=== PATIENT | male | born 1995 | race Caucasian/White ===

== ENCOUNTER 2017-07-23 14:09 | Emergency (ER) | payer BC, OTHER ==
--- NOTE | 2017-07-23 15:40 | ED ---
Chest Pain HPI - General Chief Complaint: Chest Pain Stated Complaint: Chest pain Time Seen by Provider: 07/23/17 14:58 Source: patient Mode of arrival: ambulatory Limitations: no limitations - History of Present Illness Initial Comments: This patient is a 21-year-old man presenting to be evaluated for her a sternal chest pain and a nonproductive cough. The patient states that the symptoms had started this morning, he noted them just after waking up. He denied having any trauma setting this off. 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 He is not currently taking treatment. Patient denies fever or chills, dyspnea, diaphoresis, nausea or vomiting, palpitations lightheadedness or syncope. When he went to the clinic and describes his symptoms they performed a 12-lead EKG that he was told showed an incomplete right bundle branch block and he was forwarded here in relation to that. The patient states he has never had an EKG performed and does not know if this is a new finding. MD Complaint: chest pain -: hour(s) Onset: during rest Pain Location: substernal Severity: mild Quality: dull Consistency: constant Improves With: nothing Worsens With: nothing Other Symptoms: cough Treatments Prior to Arrival: none - Related Data Home Medications Medication Instructions Recorded Confirmed Fexofenadine/Pseudoephedrine 1 tab PO DAILY 07/23/17 07/23/17 [Juanis-D 24 Hour Tablet] Ivig Treatment 1 dose IV QMONTH 07/23/17 07/23/17 guaiFENesin [Mucinex] 600 mg PO BID PRN 07/23/17 07/23/17 Allergies Allergy/AdvReac Type Severity Reaction Status Date / Time silver Allergy Irritation Verified 07/23/17 15:15 [From Tegaderm AG Mesh] Sulfa (Sulfonamide Allergy Rash/Hives Verified 07/23/17 15:15 Antibiotics) Review of Systems ROS Statement: Those systems with pertinent positive or pertinent negative responses have been documented in the HPI. ROS Other: All systems not noted in ROS Statement are negative. Constitutional: Denies: fever, chills Respiratory: Reports: as per HPI, cough. Denies: dyspnea, wheezes, hemoptysis Cardiovascular: Reports: as per HPI, chest pain. Denies: palpitations, dyspnea on exertion, orthopnea, edema, syncope Gastrointestinal: Denies: abdominal pain, nausea, vomiting Genitourinary: Denies: dysuria, hematuria Musculoskeletal: Denies: back pain Skin: Denies: rash Neurological: Denies: headache, weakness, numbness EKG Findings - EKG Results: EKG: interpreted by ERMD, sinus rhythm (With sinus arrhythmia, rate 65 bpm), normal axis, normal ST/T - Blocks, [place], Hypertrophy, ST Abn: AV and intraventricular conduction: right bundle branch block (fixed/ intermittent, complete/incomplete) (Incomplete right bundle-branch block) Past Medical History Past Medical History: Cancer Additional Past Medical History / Comment(s): leukemia 2009, IV IG therapy History of Any Multi-Drug Resistant Organisms: None Reported Additional Past Surgical History / Comment(s): medi port insertion and removal Past Psychological History: No Psychological Hx Reported Smoking Status: Never smoker Past Alcohol Use History: None Reported Past Drug Use History: None Reported General Exam Limitations: no limitations General appearance: alert, in no apparent distress Head exam: Present: atraumatic, normocephalic Eye exam: Present: normal appearance. Absent: scleral icterus, conjunctival injection ENT exam: Present: normal oropharynx Neck exam: Present: normal inspection Respiratory exam: Present: normal lung sounds bilaterally. Absent: respiratory distress, wheezes, rales, rhonchi, stridor, chest wall tenderness Cardiovascular Exam: Present: regular rate, normal rhythm, normal heart sounds. Absent: systolic murmur, diastolic murmur, rubs, gallop GI/Abdominal exam: Present: soft. Absent: distended, tenderness, guarding, rebound, rigid Extremities exam: Present: normal inspection, normal capillary refill. Absent: pedal edema, calf tenderness Back exam: Present: normal inspection Neurological exam: Present: alert Skin exam: Present: warm, dry, intact, normal color. Absent: rash Course Vital Signs 07/23/17 07/23/17 07/23/17 14:14 15:43 18:03 Temperature 97.2 F L 98.1 F Pulse Rate 72 64 Respiratory 18 16 16 Rate Blood Pressure 136/97 128/81 O2 Sat by Pulse 99 97 Oximetry Chest Pain MDM - MDM This patient is 21-year-old man presenting with flulike symptoms. There was an incidental finding of incomplete right bundle branch block on the patient's EKG at the clinic. The workup here is negative for acute ischemia. The patient has previously seen cardiology and had echocardiograms following his chemotherapy. The patient will be directed back to cardiology to see if this EKG finding is old as expected, and may require new echocardiogram. He does not have symptoms suggestive of cardiac ischemia, we discussed these as well as other return parameters. Disposition Clinical Impression: Viral syndrome, Incomplete right bundle branch block Disposition: HOME SELF-CARE Condition: Good Instructions: Viral Syndrome (ED) Referrals: Anaid Arnold MD [Primary Care Provider] - 1-2 days
[2017-07-23 15:44] VITALS: RESP 16
[2017-07-23 16:04] LABS: Basophils # (A) 0.1 k/uL (0-0.2); Basophils % (A) 1 %; Eosinophils # (A) 0.4 k/uL (0-0.7); Eosinophils % (A) 4 %; HCT 46.5 % (39.0-53.0); HGB 14.8 gm/dL (13.0-17.5); Lymphocytes # (A) 1.8 k/uL (1.0-4.8); Lymphocytes % (A) 18 %; MCH 28.4 pg (25.0-35.0); MCHC 31.9 g/dL (31.0-37.0); Mean Platelet Volume 6.9; Monocytes # (A) 0.4 k/uL (0-1.0); Monocytes % (A) 4 %; Neutrophils % (A) 71 %; Platelet Count 226 k/uL (150-450); RBC 5.22 m/uL (4.30-5.90); RDW 13.3 % (11.5-15.5); WBC 9.8 k/uL (3.8-10.6)
[2017-07-23 16:12] LABS: ALT 22 U/L (21-72); AST 23 U/L (17-59); Albumin 4.2 g/dL (3.5-5.0); Alkaline Phosphatase 69 U/L (38-126); Anion Gap 12 mmol/L; Blood Urea Nitrogen 13 mg/dL (9-20); Calcium 9.4 mg/dL (8.4-10.2); Carbon Dioxide 24 mmol/L (22-30); Chloride 106 mmol/L (98-107); Glucose 97 mg/dL (74-99); Sodium 142 mmol/L (137-145); Total Bilirubin 0.4 mg/dL (0.2-1.3); Total Protein 7.2 g/dL (6.3-8.2)
--- NOTE | 2017-07-23 17:12 | XR ---
EXAMINATION TYPE: XR chest 2V DATE OF EXAM: 07/23/2017 COMPARISON: NONE HISTORY: Chest pain and cough. TECHNIQUE: Frontal and lateral views of the chest are obtained. FINDINGS: There is no focal air space opacity, pleural effusion, or pneumothorax seen. The cardiac silhouette size is within normal limits. The osseous structures are intact. IMPRESSION: No acute cardiopulmonary process.
[2017-07-23 18:04] VITALS: BP 128/81; PULSE 64; TEMP 98.1
== END 2017-07-23 18:04 | disposition home or self-care (01) ==
LOC: EC 14:09
DX: B34.9 Viral infection, unspecified (principal); I45.10 Unspecified right bundle-branch block; Z85.6 Personal history of leukemia; Z88.2 Allergy status to sulfonamides; Z91.048 Other nonmedicinal substance allergy status; Z79.899 Other long term (current) drug therapy
CPT/HCPCS: 36415; 71046; 80053; 84484; 85025; 87502; 93005; 99285

== ENCOUNTER 2019-04-05 06:54 | Day surgery (SDC) | payer BC, OTHER ==
[~2019-04-05 06:54] MED LIST: LACTATED RINGERS 1,000 ML IV SCH
[2019-04-05] MEDS ORDERED: LACTATED RINGERS 1,000 ML IV ONE (07:10)
[2019-04-05 07:19] VITALS: TEMP 98
[2019-04-05] MEDS ORDERED: LIDOCAINE 1% INJ 10MG/ML (20 ML MDV) ONE (07:35)
[2019-04-05] MEDS ORDERED: PROPOFOL 10 MG/ML 20 ML VIAL IV ONE (07:35)
--- NOTE | 2019-04-05 08:21 | P.PCN ---
Date of Procedure: 04/05/19 Description of Procedure: BRIEF HISTORY: 23-year-old male presenting with complaints of rectal hemorrhage for outpatient colonoscopy. Reports a long history of intermittent rectal hemorrhage which is been more frequent over the past few months. PROCEDURE PERFORMED: Colonoscopy with polypectomy. PREOPERATIVE DIAGNOSIS: Rectal hemorrhage. ESTIMATED BLOOD LOSS: Minimal. IV sedation per Anesthesia. PROCEDURE: After informed consent was obtained, the patient, was brought into the endoscopy unit. IV sedation was administered by Anesthesia under continuous monitoring. Digital rectal examination was normal. Initially the Olympus CF-190 flexible video colonoscope was then inserted in the rectum, gradually advanced into the cecum without any difficulty. Careful examination was performed as the scope was gradually being withdrawn. Ileocecal valve and the appendiceal orifice were visualized and appeared normal. Prep was excellent. Mucosa of the cecum, ascending colon, transverse colon, descending colon, sigmoid colon, and rectum appeared normal. The terminal ileum was intubated and appeared normal. Biopsies were taken of the right and left colon. A small 5 mm rectal polyp was removed with cold snare polypectomy. Retroflexion was performed in the rectum and no lesions were seen, low-grade internal hemorrhoids. The patient tolerated the procedure well. IMPRESSION: Normal-appearing colon from rectum to cecum, with random biopsies of the right loss:. Small rectal polyp removed with cold snare polypectomy. Low-grade internal hemorrhoids. RECOMMENDATIONS: Findings of this examination were discussed with the patient and his family. Okay to resume diet. Okay to resume medications. Anticipate repeat colonoscopy in 5 years for history of colon polyp. If further bleeding occurs recommend local treatment with sitz baths, Preparation H, and stool softener.
[2019-04-05 08:22] VITALS: RESP 18
[2019-04-05 08:34] VITALS: BP 122/78
[2019-04-05 08:48] VITALS: PULSE 79
== END 2019-04-05 09:19 | disposition home or self-care (01) ==
LOC: ORWHC2ENDO 06:54
PROVIDERS: ATTEND Internal Medicine
DX: D12.8 Benign neoplasm of rectum (principal); K64.8 Other hemorrhoids; Z88.2 Allergy status to sulfonamides; Z79.899 Other long term (current) drug therapy
CPT/HCPCS: 88305; 45380; 45385; J2001; J2704

== ENCOUNTER → 2020-04-29 | Outpatient (CLI) | payer BC | END | disposition home or self-care (01) | LOC: LABWHC1 10:52 | PROVIDERS: ATTEND Family Medicine | DX: Z20.828 Contact with and (suspected) exposure to other viral communicable diseases (principal) | CPT/HCPCS: 87081; 87430; 87502; U0003; C9803 ==

== ENCOUNTER → 2021-08-04 | Outpatient (CLI) | payer OTHER ==
[2021-08-05 12:13] LABS: Coronavirus SARS CoV-2 Not Detected (Not Detected)
== END | disposition home or self-care (01) ==
LOC: LABWHC1 08:55
PROVIDERS: ATTEND Family Medicine
DX: R05.9 Cough, unspecified (principal)
CPT/HCPCS: U0003; C9803; U0005

== ENCOUNTER → 2022-10-07 | Outpatient (CLI) | payer BC ==
[2022-10-07 21:59] LABS: Basophils # (A) 0.06 X 10*3/uL (0.00-0.10); Basophils % (A) 0.5 %; Eosinophils # (A) 0.19 X 10*3/uL (0.04-0.35); Eosinophils % (A) 1.7 %; HCT 43.3 % (39.6-50.0); HGB 13.7 g/dL (13.0-17.0); Immature Grans, Automated 0.4 %; Lymphocytes # (A) 2.18 X 10*3/uL (0.90-5.00); Lymphocytes % (A) 19.2 %; MCH 27.8 pg (27.0-32.0); MCHC 31.6 g/dL (32.0-37.0); MCV 87.8 fL (80.0-97.0); Mean Platelet Volume 10.2 fL (9.5-12.2); Monocytes # (A) 0.49 X 10*3/uL (0.20-1.00); Monocytes % (A) 4.3 %; NRBC Per 100 WBC 0 /100 WBCS (0.0-0.0); Neutrophils # (A) 8.38 X 10*3/uL (1.80-7.70); Neutrophils % (A) 73.9 %; Platelet Count 252 X 10*3/uL (140-440); RBC 4.93 X 10*6/uL (4.40-5.60); RDW 13.8 % (11.5-14.5); WBC 11.34 X 10*3/uL (4.50-10.00)
[2022-10-08 01:17] LABS: ALT 19 U/L (10-49); AST 18 U/L (14-35); African American GFR (CKD) 92.3 (60.0-200.0); Albumin 4.4 g/dL (3.8-4.9); Albumin/Globulin Ratio 1.58 (1.60-3.17); Alkaline Phosphatase 84 U/L (41-126); BUN/Creat Ratio 14.43 Ratio (12.00-20.00); Blood Urea Nitrogen 17.6 mg/dL (9.0-27.0); Calcium 9.2 mg/dL (8.7-10.3); Carbon Dioxide 24.1 mmol/L (20.0-27.5); Chloride 100 mmol/L (96-109); Chol/HDL Ratio 4.96 Ratio; Globulin 2.8 g/dL (1.6-3.3); Glucose 74 mg/dL (70-110); LDL Cholesterol,Calculated 119.1 mg/dL (0.0-131.0); Non-African American GFR(CKD) 79.6 (60.0-200.0); Potassium 4.2 mmol/L (3.5-5.5); Sodium 138 mmol/L (135-145); Total Protein 7.2 g/dL (6.2-8.2)
== END | disposition home or self-care (01) ==
LOC: LABWHC1 13:56
PROVIDERS: ATTEND Family Medicine
DX: Z00.01 Encounter for general adult medical examination with abnormal findings (principal)
CPT/HCPCS: 36415; 80053; 80061; 82306; 83036; 83525; 84439; 84443; 85025

== ENCOUNTER → 2023-08-01 | Outpatient (CLI) | payer BC | END | disposition home or self-care (01) | LOC: LABWHC1 09:28 | PROVIDERS: ATTEND Pediatrics | DX: D80.1 Nonfamilial hypogammaglobulinemia (principal) | CPT/HCPCS: 36415; 82784 ==

== ENCOUNTER → 2023-08-09 | Outpatient (CLI) | payer BC ==
--- NOTE | 2023-08-09 16:42 | P.SLEEP ---
History of Present Illness H&P Date: 08/09/23 This is a pleasant 28-year-old male patient who was referred to me for discussion of his underlying sleep apnea and treatment options. 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 He has been noted to have excessive snoring as reported by the along with episodes of apnea. The patient himself reports limited tiredness and fatigue during the day. He reports that he is functional on the job and he does not fall asleep during day-to-day activities. His current Dallas score is at 9. He is known to have hypertension which is well-controlled with medication. He has history of snoring and he feels tired during the day. He goes to bed around 11 PM wakes at 5 AM in the morning and on weekends he is sleeping between midnight and 9 AM. It takes a few minutes to fall asleep. His weight has been stable over the past 5 years. No vivid dreams. No sleep paralysis. No hallucinations. No cataplexy. He sleeps on his side and stomach. Does not take any naps during the day. However he can easily nap if given the opportunity to do so. No head trauma. No substance abuse. No alcoholism. No anxiety or panic attacks. No nocturnal heartburn chest pain or shortness of breath. No restlessness in his lower extremities. No other significant comorbidities noted that the patient has already undergone a home sleep study that was done on 11/14/2022. This was an adequate study and the patient was found to have mild obstructive sleep apnea with an AHI of 6.4. No significant nocturnal oxygen desaturations were encountered. Review of Systems Constitutional: Reports daytime sleepiness, Reports fatigue Eyes: denies as per HPI, denies blurred vision, denies bulging eye, denies decreased vision, denies diplopia, denies discharge, denies dry eye, denies irritation, denies itching, denies pain, denies photophobia, denies loss of peripheral vision, denies loss of vision, denies tunnel vision/blind spots Ears: deny: decreased hearing, ear discharge, earache, tinnitus Ears, nose, mouth and throat: Reports as per HPI Breasts: absent: as per HPI, gynecomastia Cardiovascular: Reports high blood pressure Respiratory: Reports sleep apnea, Reports snoring Gastrointestinal: Reports as per HPI Genitourinary: Reports as per HPI Musculoskeletal: Reports as per HPI Musculoskeletal: absent: ankle pain, ankle stiffness, ankle swelling Integumentary: Reports as per HPI Neurological: Reports as per HPI Psychiatric: Reports as per HPI Endocrine: Reports as per HPI, Reports fatigue Hematologic/Lymphatic: Reports as per HPI Past Medical History Past Medical History: Cancer, Hypertension, Sleep Apnea/CPAP/BIPAP Additional Past Medical History / Comment(s): leukemia 2009, IV IG therapy History of Any Multi-Drug Resistant Organisms: None Reported Past Surgical History: No Surgical Hx Reported Additional Past Surgical History / Comment(s): medi port insertion and removal Past Psychological History: No Psychological Hx Reported Smoking Status: Never smoker Past Alcohol Use History: None Reported Past Drug Use History: None Reported Medications and Allergies Home Medications Medication Instructions Recorded Confirmed Type Ivig Treatment 1 dose IV QMONTH 07/23/17 04/03/19 History Beet Root 1 tab PO DAILY 04/03/19 History Cetirizine HCl [Zyrtec] 10 mg PO DAILY 04/03/19 04/05/19 History Garlic 1 tab PO DAILY 04/03/19 04/03/19 History Allergies Allergy/AdvReac Type Severity Reaction Status Date / Time silver Allergy Irritation Verified 04/05/19 07:20 [From Tegaderm AG Mesh] Sulfa (Sulfonamide Allergy Rash/Hives Verified 04/05/19 07:20 Antibiotics) Physical Exam Patient is getting a blood pressure of 103/68 with a pulse of 85 with a respiration of 16 and a temperature 98.1. Pulse ox is 95% on room air oxygen. Upper score is at 9. BMI is 40.3. Size of the neck is 18 inches. Weight is 300 pounds and the height is 6 feet and one third of an inch. The patient appeared well nourished and normally developed. Vital signs as documented. Head exam is unremarkable. No scleral icterus or corneal arcus noted. Neck is without jugular venous distension, thyromegaly, or carotid bruits. Carotid upstrokes are brisk bilaterally. The patient has Mallampati class IV with significant crowding of the posterior pharynx. Lungs are clear to auscultation and percussion. Cardiac exam reveals the PMI to be normally sized and situated. Rhythm is regular. First and second heart sounds normal. No murmurs, rubs or gallops. Abdominal exam reveals normal bowel sounds, no masses, no organomegaly and no aortic enlargement. Extremities are nonedematous and both femoral and pedal pulses are normal. Examination of the skin revealed no evidence of significant rashes, suspicious appearing nevi or other concerning lesions. Neurologically, the patient is awake and alert and the patient does not have any focal neurological deficit. Cranial nerves are essentially intact. Assessment and Plan Plan: Mild obstructive sleep apnea, AHI of 6.4 without any significant nocturnal oxygen desaturation. Loud snoring Chronic hypersomnia and fatigue and the patient has an Dallas score of 9 Obesity with a BMI of 40.3 Hypertension with a adequately controlled blood pressures Chronic anxiety and depression the patient is maintained on a combination of Celexa and Wellbutrin Plan I had a lengthy discussion with the patient regarding treatment of mild obstructive sleep apnea. I gave him the conservative approach of losing weight and sleeping on his side with the head of the bed elevated and maintaining good sleep hygiene measures and regular sleep schedule. I also discussed with him an oral appliance that could be potentially helpful with mild case of obstructive sleep apnea. Nevertheless, the patient showed great interest in CPAP therapy. He was interested in eliminating his obstructive sleep apnea and trying CPAP therapy regarding his obstructive sleep apnea. I think that is possible and I offered the patient an APAP machine with a pressures of 5/15 cm of water with appropriate mask interface. He is a nose breather and he would benefit from a nasal mask. I suggested him coming in seeing me back in 30 to 90 days to assess clinical response. He was made aware that the impact of CPAP therapy and mild case of obstructive sleep apnea may not be drastic. He is aware of that. He was very much interested in pursuing the treatment and assessing his clinical response. Sleep Note - Sleep Note Sleep Note: Temperature: Pulse Rate: Respiratory Rate: Blood Pressure: SpO2: Height: Weight: BMI: Neck Circumference:
== END ==
LOC: 3 N SLEEP 14:32
PROVIDERS: ATTEND Internal Medicine Critical Care Medicine
DX: G47.33 Obstructive sleep apnea (adult) (pediatric) (principal); G47.10 Hypersomnia, unspecified; E66.9 Obesity, unspecified; I10 Essential (primary) hypertension; F41.9 Anxiety disorder, unspecified; R53.83 Other fatigue; F32.A Depression, unspecified; Z68.41 Body mass index [BMI] 40.0-44.9, adult; Z88.8 Allergy status to other drugs, medicaments and biological substances; Z88.2 Allergy status to sulfonamides; Z85.6 Personal history of leukemia
CPT/HCPCS: 99211

== ENCOUNTER 2024-02-08 16:11 | Emergency (ER) | payer BC ==
[2024-02-08] MEDS ORDERED: SODIUM CHLORIDE 0.9% 1,000 ML BAG ONE (16:15)
[2024-02-08] MEDS ORDERED: KETOROLAC 15 MG/ML 1 ML VIAL ONE (16:50)
[2024-02-08] MEDS ORDERED: ONDANSETRON 4 MG/2 ML VIAL ONE (16:50)
--- NOTE | 2024-03-08 10:08 | CT ---
EXAM: CT Abdomen and Pelvis With Intravenous Contrast CLINICAL HISTORY: Ruq pain TECHNIQUE: Axial computed tomography images of the abdomen and pelvis with intravenous contrast. CTDI is 48 mGy and DLP is 2496.2 mGy-cm. This CT exam was performed using one or more of the following dose reduction techniques: automated exposure control, adjustment of the mA and/or kV according to patient size, and/or use of iterative reconstruction technique. COMPARISON: No relevant prior studies available. FINDINGS: Lung bases:Unremarkable. No mass. No consolidation. ABDOMEN: Liver:Unremarkable. No mass. Gallbladder and bile ducts:Unremarkable. No calcified stones. No ductal dilation. Pancreas:Unremarkable. No mass. No ductal dilation. Spleen:Unremarkable. No splenomegaly. Adrenals:Unremarkable. No mass. Kidneys and ureters:Unremarkable. No solid mass. No hydronephrosis. Stomach and bowel:Unremarkable. No obstruction. No mucosal thickening. PELVIS: Appendix:No findings to suggest acute appendicitis. Bladder:Unremarkable. No mass. Reproductive:Unremarkable as visualized. ABDOMEN and PELVIS: Intraperitoneal space:Unremarkable. No free air. No significant fluid collection. Bones/joints:No acute fracture. No dislocation. Soft tissues:Unremarkable. Vasculature:Unremarkable. No abdominal aortic aneurysm. Lymph nodes:Unremarkable. No enlarged lymph nodes. IMPRESSION: Normal abdomen and pelvis CT. Radiologist: Eric Grimes MD Electronically Signed: 02/09/24 00:21 Study ready at 22:42 and initial results transmitted at 00:21 [facility]
--- NOTE | 2024-03-13 15:54 | US ---
Site ID [facility] Patient Kai Saul ID [id number] Age/Gender: 28Y, F Order # N/A Procedure US gallbladder Date 02/08/2024 7:12:00 PM INDICATION: Patient age: Female; 28 year old; Reason for study: Abdominal pain for 2 weeks. COMPARISON: None, please note PACS Production downtime occurred during the radiologist interpretation of these images with limited priors/reports.. TECHNIQUE: Multiple grayscale and color doppler ultrasound images of the right upper abdomen obtained utilizing transabdominal imaging. FINDINGS: PANCREAS: Limited evaluation of the pancreas secondary to bowel. LIVER: The liver demonstrates a normal echotexture. There is no evidence of dilated ducts, cystic structures , or solid mass. Measures up to 17.3 cm in greatest dimension. GALLBLADDER: The gallbladder is without evidence of wall thickening, pericholecystic fluid, or cholelithiasis. The common duct measures approximately 3 mm. Per glass processing worker, the sonographic Ludwig's sign was negative . RIGHT KIDNEY: The right kidney measures 11.2 x 4.2 x 5.1 cm, without evidence of hydronephrosis, shadowing calculus , or contour deforming solid mass. Renal parenchymal echogenicity is within normal limits. IMPRESSION: No sonographic evidence for acute process.
== END 2024-02-09 00:33 | disposition home or self-care (01) ==
LOC: EC 16:11
CPT/HCPCS: 74177; 76705; 96361; 96374; 96375; 99284

== ENCOUNTER 2024-05-04 07:53 | Day surgery (SDC) | payer BC ==
[2024-05-02 16:00] VITALS: BMI 41.5
[2024-05-04] MEDS: IV FLUID CONTINUATION 1,000 ML IV ONE (08:05)
[2024-05-04 08:19] VITALS: TEMP 97.6
[2024-05-04] MEDS: LACTATED RINGERS 1,000 ML IV SCH (08:26)
[2024-05-04] MEDS ORDERED: LIDOCAINE 2% (PF) 20 MG/ML 5 ML VIAL ONE (08:55)
[2024-05-04] MEDS ORDERED: PROPOFOL 10 MG/ML 20 ML VIAL IV ONE (08:55)
--- NOTE | 2024-05-04 09:14 | P.PCN ---
Date of Procedure: 05/04/24 Procedure(s) Performed: Brief history: Patient is a pleasant 28-year-old white male scheduled for an elective upper endoscopy as well as colonoscopy as a part of evaluation of intermittent episodes of nausea vomiting and diarrhea for the last 6 months duration. Procedure performed: Esophagogastroduodenoscopy with biopsy Colonoscopy with biopsy Preoperative diagnosis: Abdominal pain/nausea vomiting Change in bowel habits Anesthesia: MAC Procedure: After informed consent was obtained from the patient was brought into the endoscopy unit and IV sedation was administered by anesthesia under continuous monitoring. Initially upper endoscopy was done. The Olympus GF 160 video endoscope was inserted inserted into the mouth and esophagus intubated without any difficulty and was gradually advanced into the stomach and duodenum and carefully examined. The bulb and second part of the duodenum appeared normal. Cisplatin done from the duodenum to rule out celiac disease. The scope was then withdrawn into the stomach adequately insufflated with air and upon careful examination the antrum had mild gastritis and biopsies were done for this area. Mucosa of the body, cardia and fundus appeared normal. The scope was then withdrawn into the esophagus. The GE junction was located at 40 cm to the incisors. It appeared regular with no erythema erosions or ulcerations. Rest of the esophagus appeared normal. Patient tolerated the procedure well. At this time the patient continued to remain sedation. Initial digital rectal examination was normal. Olympus CF 160 video colonoscope was then inserted into the rectum and gradually advanced to the cecum without any difficulty. Careful examination was performed as the scope was gradually being withdrawn. The prep was excellent. Terminal ileum was intubated in 20 cm visualized and appeared normal. Biopsies were done from this area. The cecum, ascending colon, transverse colon, descending colon, sigmoid colon and rectum appeared normal. Biopsies were done from the ascending and descending colon rule out microscopic/collagenous colitis. Retroflexion was performed in the rectum and no lesions were noted. Patient tolerated the procedure well. Impression: 1. Upper endoscopy revealed mild antral gastritis but no evidence of esop hagitis or peptic ulcer disease 2. Colonoscopy was within normal limits with no evidence of colorectal neoplasia Recommendations: Findings of this examination were discussed with the patient as well as his family. He was advised to follow-up with the biopsy results. He will be seen in the office in 2 weeks.
[2024-05-04 09:37] VITALS: BP 102/60; PULSE 72; RESP 14
== END 2024-05-04 09:53 | disposition home or self-care (01) ==
LOC: ORWHC2ENDO 07:53
PROVIDERS: ATTEND Internal Medicine Gastroenterology
DX: D12.2 Benign neoplasm of ascending colon (principal); K29.50 Unspecified chronic gastritis without bleeding; D72.820 Lymphocytosis (symptomatic); G47.33 Obstructive sleep apnea (adult) (pediatric); F32.A Depression, unspecified; F41.9 Anxiety disorder, unspecified; Z68.37 Body mass index [BMI] 37.0-37.9, adult; Z88.2 Allergy status to sulfonamides; E78.5 Hyperlipidemia, unspecified; E66.01 Morbid (severe) obesity due to excess calories; Z79.899 Other long term (current) drug therapy
CPT/HCPCS: 45380; 43239; J2704; J2003; 88305

== ENCOUNTER → 2024-05-31 | Outpatient (CLI) | payer BC ==
[2024-05-31 20:14] LABS: Gliadin AB IgA, Deaminated Negative (Negative); Gliadin AB IgA, Unit <0.5 U/mL; Gliadin AB IgG, Deaminated Negative (Negative); Gliadin AB IgG, Unit <0.4 U/mL
== END | disposition home or self-care (01) ==
LOC: LABWHC1 11:11
PROVIDERS: ATTEND Internal Medicine Gastroenterology
DX: R76.8 Other specified abnormal immunological findings in serum (principal)
CPT/HCPCS: 36415; 83516